=== PATIENT | female | born 1975 | race Caucasian/White ===

== ENCOUNTER 2024-01-18 11:11 | Emergency (ER) | payer OTHER, SELFPAY ==
[2024-01-18 11:20] VITALS: BP 194/139; PULSE 80; RESP 20; TEMP 37.1; O2SAT 95; BMI 46.3
--- NOTE | 2024-01-18 11:28 | ED.GENADULT ---
HPI - General Adult General Chief complaint: Dental/Oral/Mouth Injury/Pain Stated complaint: tooth pain Time Seen by Provider: 01/18/24 11:26 History of Present Illness HPI narrative: Patient presents to the emergency department complaining of pain in her mouth along the top gums. Patient states she has multiple broken teeth. Has not been seen by a dentist. Patient states she has a hx of cellulitis and wants to make sure she doesn' t have it again 48-year-old woman presenting to the emergency department with concern of tooth problems. Has longstanding dental problems. Notes a history of ?cellulitis? I think referring to facial. She is accompanied here by a friend/neighbor I believe. Newer to the area having moved from [place]. No recent dental cares with last dentist being seen in the [facility]. No fever. No drainage. Arrives with an ice pack at her left face. Ibuprofen without relief. I do note rather high blood pressure on arrival. She has not taken her morning blood pressure medications. No peripheral numbness tingling or visual changes headache other than what appears to be related to dental problems. Related Data Home Medications Medication Instructions Recorded Confirmed amlodipine 10 mg tablet 10 mg PO DAILY 01/18/24 01/18/24 gabapentin 300 mg capsule 300 mg PO 3XD 01/18/24 01/18/24 hydrochlorothiazide 25 mg tablet 25 mg PO DAILY 01/18/24 01/18/24 metoprolol succinate 100 mg 100 mg PO DAILY 01/18/24 01/18/24 tablet,extended release 24 hr metronidazole 500 mg tablet 500 mg PO BID 01/18/24 01/18/24 paroxetine HCl 20 mg tablet 20 mg PO DAILY 01/18/24 01/18/24 paroxetine HCl 30 mg tablet 30 mg PO DAILY 01/18/24 01/18/24 Allergies Allergy/AdvReac Type Severity Reaction Status Date / Time No Known Drug Allergies Allergy Verified 01/18/24 11:25 Review of Systems Status of ROS: Reports: 6 or more systems reviewed and unremarkable except as noted in History and below [facility] Social History Smoking Status: Never smoker How often do you have a drink containing alcohol: never AUDIT-C Alcohol total score: 0 Non-prescribed substance use: denies use Exam Narrative: Exam Narrative: Clearly uncomfortable. Breathing easily. No stridor. Oropharynx with extensively broken teeth. One partial tooth remaining in the upper jaw on the upper right front. Most teeth are eroded at the gums. Mild gingival injection. Mild erythema on the buccal surface centrally on the left upper but not much in way of swelling. Neck is supple without lymphadenopathy. Appears to have more tenderness along the lower jaw actually on the left. Drainage appreciated. Skin generally is warm and dry without any induration or erythema to suggest cellulitis. No TMJ area pain. Opens and closes the jaw without clear difficulty. Again ice pack was at her left face. TMs are clear. Const: Vital Signs, click to edit/add: Vital Signs - 24 hr 01/18/24 11:20 Temperature 98.7 F Pulse Rate [Left P ulse Oximeter] 80 Respiratory Rate 20 Blood Pressure [Ri ght Upper Arm] 194/139 H Pulse Oximetry 95 Oxygen Delivery Me thod Room Air Documenting provider has reviewed patient's vital signs: yes Course Vital Signs Vital signs: Initial Vital Signs Temperature 98.7 F 01/18/24 11:20 Temperature Source Temporal Artery Scan 01/18/24 11:20 Pulse Rate 80 01/18/24 11:20 Pulse Rhythm Regular 01/18/24 11:20 Pulse Strength 3+ Normal 01/18/24 11:20 Respiratory Rate 20 01/18/24 11:20 Blood Pressure 194/139 H 01/18/24 11:20 Blood Pressure Mean 157 H 01/18/24 11:20 Blood Pressure Position Sitting 01/18/24 11:20 Pulse Oximetry 95 01/18/24 11:20 Oxygen Delivery Method Room Air 01/18/24 11:20 Vital Signs Temperature 98.7 F 01/18/24 11:20 Pulse Rate 80 01/18/24 11:20 Respiratory Rate 20 01/18/24 11:20 Blood Pressure 194/139 H 01/18/24 11:20 Pulse Oximetry 95 01/18/24 11:20 Oxygen Delivery Method Room Air 01/18/24 11:20 Temperature 98.7 F 01/18/24 11:20 Pulse Rate 80 01/18/24 11:20 Respiratory Rate 20 01/18/24 11:20 Blood Pressure 194/139 H 01/18/24 11:20 Pulse Oximetry 95 01/18/24 11:20 Oxygen Delivery Method Room Air 01/18/24 11:20 Medications Administered Medications: Discontinued Medications Generic Name Dose Route Start Last Admin Trade Name Ariel PRN Reason Stop Dose Admin Amlodipine Besylate 10 mg 01/18/24 11:46 01/18/24 12:24 Amlodipine 10 Mg Tablet PO 01/18/24 11:47 10 mg ONCE ONE Administration Medical Decision Making MDM Narrative Medical decision making narrative: At a minimum has some degree of gingivitis. She does report using recently some hydrogen peroxide along with usual mouthwash which it sounds like does daily or twice daily. Would be prudent to treat for potential infection. Will need essentially all teeth extracted. Will provide with dental list. I did offer dental block for relief of pain. This seemed to cause some stress/anxiety. Prefers only oral treatment at this time. Discussed options for pain medication along with friend. Month ago prior to arrival here was evaluated by primary care provider and with blood pressure review. Labs? Elevated blood pressure likely multifactorial. Will need close follow-up. Will also dose with 10 mg of amlodipine while she is here. See patient discharge plan for further discussion Medical Records Medical records narrative: Full records not available now. Reviewed medications and reported past medical Discharge Plan Discharge Clinical Impression: Gingivitis, Dental erosion, Pain, dental, High blood pressure Patient Disposition: Home w/ Parent or Adult Condition: Stable Instructions: Periodontal Disease (DC) Additional Instructions: I would continue to do twice daily mouth washes. See handout for dental clinic options. Please start calling around to see by whom you can be seen. Be sure dental insurance is current or establish if possible. Please establish primary care locally as well. Will need follow-up for your blood pressures. Can continue with ibuprofen. This can be combined with the medications prescribed today. [place] and penicillin from [employer]. Take the penicillin for 8 days. Take 2 tablets for the 1st dose. Prescriptions: No Action metoprolol succinate 100 mg tablet extended release 24 hr 100 mg PO DAILY metronidazole 500 mg tablet 500 mg PO BID amlodipine 10 mg tablet 10 mg PO DAILY paroxetine HCl 30 mg tablet 30 mg PO DAILY paroxetine HCl 20 mg tablet 20 mg PO DAILY gabapentin 300 mg capsule 300 mg PO 3XD hydrochlorothiazide 25 mg tablet 25 mg PO DAILY Stand Alone Forms: CallVU Info Instructions
[2024-01-18] MEDS: AMLODIPINE 10 MG TABLET PO (12:24)
== END 2024-01-18 12:33 | disposition home or self-care (01) ==
PROVIDERS: Emergency Provider Family Medicine
DX: K05.10 Chronic gingivitis, plaque induced (principal); K03.2 Erosion of teeth; K08.89 Other specified disorders of teeth and supporting structures; R03.0 Elevated blood-pressure reading, without diagnosis of hypertension
CPT/HCPCS: 99283; 99284; A9270

== ENCOUNTER 2024-04-05 20:32 | Emergency (ER) | payer MEDICAID, SELFPAY ==
[2024-04-05 20:40] VITALS: BP 148/127; PULSE 179; RESP 24; RESP 28; TEMP 36.3; TEMP 36.7; O2SAT 92; O2SAT 96; BMI 46.3
[2024-04-05] MEDS: ADENOSINE 6 MG/2ML INJ IVP (20:45)
[2024-04-05] MEDS: ADENOSINE 6 MG/2ML INJ 12 MG IVP (20:48)
[2024-04-05 20:50] VITALS: BP 169/106; PULSE 95; RESP 18; O2SAT 96
--- NOTE | 2024-04-05 20:50 | CRLHL7_ITS ---
For Patients: As a result of the Century Cures Act, medical imaging exams and procedure reports are released immediately into your electronic medical record. You may view this report before your referring provider. If you have questions, please contact your health care provider. INDICATION: Chest pain. TECHNIQUE: Chest 1 views. COMPARISON: None. FINDINGS: Lungs: Low lung volumes. No consolidation. Multiple calcified granulomas. Pleura: No pleural effusion or pneumothorax. Heart and Mediastinum: Borderline cardiomegaly. The great vessels of the thorax are unremarkable. Bones: No acute displaced osseous process. IMPRESSION: No consolidation. Borderline cardiomegaly. Dictated by Dwayne Campbell MD @ 04/05/2024 10:13:29 PM (Electronically Signed)
--- NOTE | 2024-04-05 20:51 | ED.GENADULT ---
HPI - General Adult General Chief complaint: Chest Pain Stated complaint: Chest pain, suspected heart attack Time Seen by Provider: 04/05/24 20:40 History of Present Illness HPI narrative: Patient is a 48-year-old woman who is currently not on her medications for her SVT which includes metoprolol. She also takes a baby aspirin daily. 20 minutes ago she developed symptoms of fast heart rate. She has been cardioverted in the past with adenosine. She has having no chest pain but she short of breath she is very anxious. She has no other recent cardiovascular symptoms states that she was in her resting state when she suddenly developed the onset of fast heart rate. Patient denies any recent substance abuse. She states she cannot afford her medication and is living in her trailer she is otherwise homeless. Related Data Home Medications ?Medication ?Instructions ?Recorded ?Confirmed amlodipine 10 mg tablet 10 mg PO DAILY 01/18/24 01/18/24 gabapentin 300 mg capsule 300 mg PO 3XD 01/18/24 01/18/24 hydrochlorothiazide 25 mg tablet 25 mg PO DAILY 01/18/24 01/18/24 metoprolol succinate 100 mg 100 mg PO DAILY 01/18/24 01/18/24 tablet,extended release 24 hr metronidazole 500 mg tablet 500 mg PO BID 01/18/24 01/18/24 paroxetine HCl 20 mg tablet 20 mg PO DAILY 01/18/24 01/18/24 paroxetine HCl 30 mg tablet 30 mg PO DAILY 01/18/24 01/18/24 Allergies Allergy/AdvReac Type Severity Reaction Status Date / Time No Known Drug Allergies Allergy Verified 01/18/24 11:25 Review of Systems Status of ROS: Reports: 10 or more systems reviewed and unremarkable except as noted in History and below [facility] Medical History (Updated 04/05/24 @ 21:34 by Jeancarlos El MD) SVT (supraventricular tachycardia) ?I47.10 - Supraventricular tachycardia, unspecified (ICD-10) Social History Smoking Status: Current every day smoker Do you use any of these nicotine containing products: None Second hand tobacco smoke exposure: No How often do you have a drink containing alcohol: never AUDIT-C Alcohol total score: 0 Non-prescribed substance use: amphetamines/methamphetamines service: No Exam Narrative: Exam Narrative: EXAM GENERAL: Patient appears extremely anxious. EYES: No scleral icterus LYMPH: No supraclavicular or cervical lymphadenopathy. SKIN: Visible skin seen during exam normal or with benign process only. EXT: No dependent lower extremity pedal edema. HEART: Regular rate and tachycardic. LUNGS: Clear to auscultation bilaterally with no crackles or wheezes. ABD: Soft, non tender, non distended. PSYCH: Good eye contact, speech is not pressured. Const: Vital Signs, click to edit/add: Vital Signs - 24 hr 04/05/24 20:40 04/05/24 20:40 04/05/24 20:50 Temperature 98.1 F 97.4 F L Pulse Rate [Apical ] 179 H 179 H 95 Respiratory Rate 24 28 H 18 Blood Pressure [Ri ght Upper Arm] 148/127 H 148/127 H 169/106 H Pulse Oximetry 96 92 96 Oxygen Delivery Me thod Room Air Room Air Nasal Cannula Oxygen Flow Rate 2 04/05/24 21:00 Temperature Pulse Rate [Apical ] 90 Respiratory Rate 18 Blood Pressure [Ri ght Upper Arm] 178/113 H Pulse Oximetry 98 Oxygen Delivery Me thod Nasal Cannula Oxygen Flow Rate 2 Course Course ED Course: Patient seen and examined. IV was established. Patient received 6 mg of IV adenosine with limited effect. Patient then received 12 mg of adenosine with cardioversion to sinus tachycardia rate of 106. Patient given 1 mg of Ativan and 1 L of normal saline standard labs pending. Vital Signs Vital signs: Initial Vital Signs Temperature 98.1 F 04/05/24 20:40 Temperature Source Temporal Artery Scan 04/05/24 20:40 Pulse Rate 179 H 04/05/24 20:40 Respiratory Rate 24 04/05/24 20:40 Respiratory Effort Short of Breath 04/05/24 20:40 Respiratory Depth Normal 04/05/24 20:40 Respiratory Pattern Tachypnea 04/05/24 20:40 Blood Pressure 148/127 H 04/05/24 20:40 Blood Pressure Mean 134 H 04/05/24 20:40 Blood Pressure Position Sitting 04/05/24 20:40 Pulse Oximetry 96 04/05/24 20:40 Oxygen Delivery Method Room Air 04/05/24 20:40 Vital Signs Temperature 98.1 F 04/05/24 20:40 Pulse Rate 179 H 04/05/24 20:40 Respiratory Rate 24 04/05/24 20:40 Blood Pressure 148/127 H 04/05/24 20:40 Pulse Oximetry 96 04/05/24 20:40 Oxygen Delivery Method Room Air 04/05/24 20:40 Temperature 97.4 F L 04/05/24 20:40 Pulse Rate 90 04/05/24 21:00 Respiratory Rate 18 04/05/24 21:00 Blood Pressure 178/113 H 04/05/24 21:00 Pulse Oximetry 98 04/05/24 21:00 Oxygen Delivery Method Nasal Cannula 04/05/24 21:00 Oxygen Flow Rate 2 04/05/24 21:00 Medications Administered Medications: Generic Name Dose Route Start Last Admin Trade Name Freaudi PRN Reason Stop Dose Admin Adenosine 6 mg 04/05/24 20:50 04/05/24 20:45 Adenosine 6 Mg/2ml Inj IVP 04/05/24 20:51 6 mg ONCE ONE Administration Adenosine 12 mg 04/05/24 20:50 04/05/24 20:48 Adenosine 6 Mg/2ml Inj IVP 04/05/24 20:51 12 mg ONCE ONE Administration Sodium Chloride 1,000 mls @ 1,000 mls/hr 04/05/24 20:50 04/05/24 20:54 0.9 % Sodium Chloride 1000 Ml IV 04/05/24 21:49 1,000 mls/hr .Q1H DAFNE Administration Medical Decision Making MDM Narrative Medical decision making narrative: Patient is a 48-year-old woman who has history of SVT not currently take her medication. Initially did appeared that she had been using methamphetamine but in fact she has been using methamphetamine. She did convert after 6 and then 12 mg of adenosine and now has a sinus rhythm of 95 beats per minute. Patient is asymptomatic. Patient has negative troponin unremarkable chest x-ray and unremarkable electrolytes and CBC. I do not believe the 2nd troponin would be in her best interest. She is counseled as to the dangers of methamphetamine use and will try to get back on her medication. She does go methamphetamine treatment within the next week. Lab Data Labs: Lab Results 04/05/24 Range/Units 20:40 WBC 11.02 H (4.50-11.00) K/uL RBC 4.87 (4.00-5.20) m/uL Hgb 14.4 (12.0-16.0) gm/dL Hct 43.4 (33.0-51.0) % MCV 89 (80-100) fL MCH 30 (26-34) pg MCHC 33 (32-36) gm/dL RDW Coeff of Quinn 14.9 (11.5-15.5) % Plt Count 237 (140-440) K/uL Neut % (Auto) 65.3 (42.0-72.0) % Lymph % (Auto) 30.2 (20-44) % [place] % (Auto) 3.5 (0.0-11.0) % Eos % (Auto) 0.7 (0.0-7.0) % Baso % (Auto) 0.2 (0.0-3.0) % Neut # (Auto) 7.20 H (1.7-7.0) K/uL Lymph # (Auto) 3.30 H (0.90-2.90) K/uL [place] # (Auto) 0.40 (0.00-0.90) K/UL Eos # (Auto) 0.10 (0.00-0.50) K/uL Baso # (Auto) 0.00 (0.00-0.30) K/uL Abs Immat Gran (auto) 0.00 (0.00-0.30) K/uL Imm/Tot Granulo (auto) 0.1 % Sodium 138 (135-149) mmol/L Potassium 3.7 (3.6-5.1) mmol/L Chloride 107 (96-114) mmol/L Carbon Dioxide 24 (20-32) mmol/L Anion Gap 7 (7-15) mEq/L BUN 22 (5-24) mg/dL Creatinine 1.1 (0.5-1.5) mg/dL Estimated Creat Clear 56.28 Estimated GFR 62 ml/min Glucose 149 H (60-115) mg/dL Calcium 9.2 (8.4-10.6) mg/dL Troponin I 0.01 (0.01-0.04) ng/mL POC Troponin I 0.01 (0.01-0.04) ng/ml Discharge Plan Discharge Clinical Impression: SVT (supraventricular tachycardia) Patient Disposition: Home, Self-Care Condition: Stable Instructions: Supraventricular Tachycardia (ED) Additional Instructions: Avoid methamphetamine Continue current medications if possible Follow-up with your doctor as needed. Activity Level: No Restrictions Discharge Diet: Regular Prescriptions: No Action metoprolol succinate 100 mg tablet extended release 24 hr 100 mg PO DAILY metronidazole 500 mg tablet 500 mg PO BID amlodipine 10 mg tablet 10 mg PO DAILY paroxetine HCl 30 mg tablet 30 mg PO DAILY paroxetine HCl 20 mg tablet 20 mg PO DAILY gabapentin 300 mg capsule 300 mg PO 3XD hydrochlorothiazide 25 mg tablet 25 mg PO DAILY Follow Up/Referrals: Provider,Not a Local [Primary Care Provider] - Stand Alone Forms: Anytime DDth Info Instructions
[2024-04-05] MEDS: LORazepam 2 MG/ML inj 1 MG IVP (20:52)
[2024-04-05] MEDS: 0.9 % SODIUM CHLORIDE 1000 ml 1,000 ML IV (20:54)
[2024-04-05 20:56] LABS: Basophils Percent Auto 0.2 % (0.0-3.0); Eosinophils Percent Auto 0.7 % (0.0-7.0); Hematocrit 43.4 % (33.0-51.0); Hemoglobin* 14.4 gm/dL (12.0-16.0); Immature Granulocytes Pct Auto 0.1 %; Lymphocytes Percent Auto 30.2 % (20-44); Mean Corpuscular HGB Conc 33 gm/dL (32-36); Mean Corpuscular Hemoglobin 30 pg (26-34); Mean Corpuscular Volume 89 fL (80-100); Monocytes Percent Auto 3.5 % (0.0-11.0); Neutrophils Percent Auto 65.3 % (42.0-72.0); Platelet Count* 237 K/uL (140-440); RDW Coefficient of Variation % 14.9 % (11.5-15.5); Red Blood Count 4.87 m/uL (4.00-5.20); White Blood Count* 11.02 K/uL (4.50-11.00)
[2024-04-05 20:58] LABS: Slide Review Reflex No
[2024-04-05 21:00] VITALS: BP 178/113; PULSE 90; RESP 18; O2SAT 98
[2024-04-05 21:01] LABS: Chloride* 107 mmol/L (96-114); Sodium* 138 mmol/L (135-149)
[2024-04-05 21:02] LABS: Potassium* 3.7 mmol/L (3.6-5.1)
[2024-04-05 21:04] LABS: Anion Gap 7 mEq/L (7-15); Carbon Dioxide* 24 mmol/L (20-32); Creatinine* 1.1 mg/dL (0.5-1.5); Est. Creatinine Clearance* 56.28; Estimated Glomerular Filt Rate 62 ml/min
[2024-04-05 21:05] LABS: Blood Urea Nitrogen* 22 mg/dL (5-24); Calcium* 9.2 mg/dL (8.4-10.6); Glucose* 149 mg/dL (60-115)
--- NOTE | 2024-04-05 21:08 | PC.NURSE ---
pt very tearful and anxious, states she is going to treatment next sammi for meth use. is currently staying with a friend. her 13 yo son is with her friend currently.
[2024-04-05 21:15] LABS: Troponin, Point-of-Care* 0.01 ng/ml (0.01-0.04)
[2024-04-05 21:17] LABS: Troponin I* 0.01 ng/mL (0.01-0.04)
== END 2024-04-05 22:19 | disposition home or self-care (01) ==
PROVIDERS: Emergency Provider Internal Medicine
DX: I47.10 Supraventricular tachycardia, unspecified (principal)
CPT/HCPCS: 36415; 71045; 80048; 84484; 85025; 92960; 93005; 96374; 99283; 99284; J0153; J2060; J7030